=== PATIENT | male | born 1950 | race Caucasian/White ===

== ENCOUNTER 2018-02-21 13:13 | Emergency (ER) | payer MEDICARE, OTHER ==
[~2018-02-21] VITALS: Ht 182.9 cm; Wt 69.1 kg
[~2018-02-21 13:13] MED LIST: ALBU6.7H INH; CALC-1092 PO; CALC-159; FENT-93 TD; FLO0.4C PO; HALO2TAB PO; IBUP-1985 PO; LORA0.5T PO; MAGN400O6 PO; METO1TAB25 PO; MORPHINE 20MG/ML PO; ONDA4TAB6 PO; OXYC-580 PO; SENN-161 PO; naloxone 2mg/2ml inj ONE
[2018-02-21 13:33] LABS: BASOPHILS % (AUTO) 0.2 % (0-1); EOSINOPHILS % (AUTO) 0.1 % (0-6); HEMATOCRIT 37.8 % (42.0-52.0); HEMOGLOBIN 13.3 g/dl (14.0-17.9); LYMPHOCYTES # (AUTO) 0.8 X10'3 (1.1-4.8); LYMPHOCYTES % (AUTO) 16.4 % (21-51); MEAN CORPUSCULAR HGB CONC 35.2 % (33.0-36.5); MEAN CORPUSCULAR VOLUME 91.1 FL (78-98); MEAN PLATELET VOLUME 8.7 FL (7.4-10.4); MONOCYTES # (AUTO) 0.2 X10'3 (0-0.9); MONOCYTES % (AUTO) 4.1 % (2-12); NEUTROPHILS % (AUTO) 79.2 % (42-75); PLATELET COUNT 176 X10'3 (140-440); RED BLOOD COUNT 4.15 X10'6 (4.70-6.10); RED CELL DISTRIBUTION WIDTH 13.1 % (11.5-14.5); WHITE BLOOD COUNT 5.1 X10'3 (4.5-11.0)
[2018-02-21 13:49] LABS: ALANINE AMINOTRANSFERASE 20 U/L (12-78); ALBUMIN 3.8 G/DL (3.4-5.0); ALBUMIN/GLOBULIN RATIO 1.3 (1.1-1.5); ALKALINE PHOSPHATASE 68 IU/L (46-116); ANION GAP 5 (8-16); ASPARTATE AMINO TRANSFERASE 11 U/L (10-37); BILIRUBIN,TOTAL 0.5 MG/DL (0.1-1.0); BLOOD UREA NITROGEN 11 MG/DL (7-18); BUN/CREATININE RATIO 10.6 (5.4-32.0); CALCIUM 8.4 MG/DL (8.5-10.1); CHLORIDE 93 MMOL/L (99-107); CREATININE 1.04 MG/DL (0.60-1.10); GLUCOSE 190 MG/DL (70-104); POTASSIUM 3.8 MMOL/L (3.5-5.1); SODIUM 131 MMOL/L (135-145); TOTAL CARBON DIOXIDE 32.9 MMOL/L (24-32); TOTAL PROTEIN 6.7 G/DL (6.4-8.2); eGFR 72 ML/MIN
[2018-02-21 13:57] LABS: ETHANOL < 0.010 GM/DL (0.0-0.010)
[2018-02-21 13:58] LABS: ACETAMINOPHEN < 2.0 UG/ML (10-30)
[2018-02-21] MEDS ORDERED: normal saline 1000ml 1,000 ML IV ONE ×2 (14:10→17:35)
[2018-02-21 14:56] LABS: URINE AMPHETAMINE SCREEN NEGATIVE (Neg); URINE BARBITUATE SCREEN NEGATIVE (Neg); URINE BENZODIAZEPINES SCREEN NEGATIVE (Neg); URINE CANNABINOID SCREEN POSITIVE (Neg); URINE COCAINE SCREEN NEGATIVE (Neg); URINE METHADONE SCREEN NEGATIVE (Neg); URINE OPIATE SCREEN POSITIVE (Neg); URINE PHENCYCLIDINE SCREEN NEGATIVE (Neg)
[2018-02-21 14:58] LABS: CLARITY,URINE Clear (Clear); COLOR,URINE Yellow (Yellow); GLUCOSE, URINE Negative (Neg); KETONES,URINE Negative (Neg); LEUKOCYTE ESTERASE ,URINE Negative (Neg); NITRITES, URINE Negative (Neg); OCCULT BLOOD,URINE Negative (Neg); PROTEIN,URINE Negative (Neg); UROBILINOGEN,URINE 0.2 E.U/dL (0.2-1.0)
[2018-02-21 14:59] LABS: UA COLLECTION TYPE URINAL
[2018-02-21] MEDS ORDERED: naloxone 2mg/2ml inj IV STA (17:32)
[2018-02-21] MEDS ORDERED: naloxone 0.4 mg/ml inj IV ONE (17:35)
[2018-02-22] MEDS ORDERED: magnesium hydroxide 30ml (MOM) UD suspension PO PRN (06:55)
[2018-02-22] MEDS ORDERED: sennosides 8.6mg tablet PO PRN (06:55)
[2018-02-22] MEDS ORDERED: calcium carbonate 500mg chew tablet PO PRN (06:55)
[2018-02-22] MEDS ORDERED: ibuprofen 200mg tablet PO PRN (06:55)
[2018-02-22] MEDS ORDERED: morphine 10 MG/5 ML UD oral solution PO PRN (06:55)
[2018-02-22] MEDS ORDERED: ondansetron 4mg rapidly disintigrating tab PO PRN (06:55)
[2018-02-22] MEDS ORDERED: albuterol 2.5 MG/3 ML nebule NEB PRN (07:30)
[2018-02-22] MEDS: HYDROchlorothiazide 25mg tablet PO SCH (09:17)
[2018-02-22] MEDS: tamsulosin 0.4mg capsule PO SCH (09:18)
[2018-02-22] MEDS: metoprolol tartrate 25mg tablet PO SCH (09:18)
[2018-02-22] MEDS: LORazepam 0.5 MG tablet PO PRN ×3 (09:18→22:33)
[2018-02-22] MEDS: calcium carbonate/vitamin D3 tablet PO SCH (09:48)
[2018-02-22] MEDS: fentaNYL 100MCG/hour patch.TD72 TD SCH (09:51)
[2018-02-22] MEDS: haloperidol 1mg tablet PO PRN (15:06)
[2018-02-22] MEDS: diphenhydrAMINE 25mg capsule PO PRN (15:20)
[2018-02-22] MEDS ORDERED: diphenhydrAMINE 25mg capsule PO STA (22:26)
[2018-02-23] MEDS: metoprolol tartrate 25mg tablet PO SCH (08:00)
[2018-02-23] MEDS: calcium carbonate/vitamin D3 tablet PO SCH (08:00)
[2018-02-23] MEDS: HYDROchlorothiazide 25mg tablet PO SCH (08:00)
[2018-02-23] MEDS: tamsulosin 0.4mg capsule PO SCH (08:00)
[2018-02-23] MEDS ORDERED: nicotine 14mg patch - 24hr TD ONE (13:25)
[2018-02-23] MEDS: LORazepam 0.5 MG tablet PO PRN ×2 (13:32→19:25)
[2018-02-23] MEDS: oxyCODONE IR 5mg (immed. release) tablet PO PRN (13:33)
[2018-02-23] MEDS: haloperidol 1mg tablet PO PRN (13:34)
[2018-02-23] MEDS: diphenhydrAMINE 25mg capsule PO PRN (19:26)
[2018-02-24] MEDS: nicotine 14mg patch - 24hr TD SCH (08:39)
[2018-02-24] MEDS: fentaNYL 100MCG/hour patch.TD72 TD SCH (08:40)
[2018-02-24] MEDS: LORazepam 0.5 MG tablet PO PRN ×2 (08:42→19:24)
[2018-02-24] MEDS: HYDROchlorothiazide 25mg tablet PO SCH (08:42)
[2018-02-24] MEDS: tamsulosin 0.4mg capsule PO SCH (08:42)
[2018-02-24] MEDS: metoprolol tartrate 25mg tablet PO SCH (08:42)
[2018-02-24] MEDS: calcium carbonate/vitamin D3 tablet PO SCH (08:42)
[2018-02-24] MEDS: diphenhydrAMINE 25mg capsule PO PRN ×2 (14:14→19:28)
[2018-02-24] MEDS: oxyCODONE IR 5mg (immed. release) tablet PO PRN (17:04)
[2018-02-24] MEDS: haloperidol 1mg tablet PO PRN (21:57)
[2018-02-24] MEDS ORDERED: nicotine 14mg patch - 24hr TD ONE (22:00)
[2018-02-25] MEDS: LORazepam 0.5 MG tablet PO PRN ×4 (00:44→19:08)
[2018-02-25] MEDS: diphenhydrAMINE 25mg capsule PO PRN ×2 (00:44→19:10)
[2018-02-25] MEDS: oxyCODONE IR 5mg (immed. release) tablet PO PRN ×3 (00:44→23:27)
[2018-02-25] MEDS: tamsulosin 0.4mg capsule PO SCH (08:37)
[2018-02-25] MEDS: metoprolol tartrate 25mg tablet PO SCH (08:37)
[2018-02-25] MEDS: HYDROchlorothiazide 25mg tablet PO SCH (08:37)
[2018-02-25] MEDS: calcium carbonate/vitamin D3 tablet PO SCH (08:38)
[2018-02-25] MEDS: nicotine 14mg patch - 24hr TD SCH (08:38)
[2018-02-25] MEDS: haloperidol 1mg tablet PO PRN ×2 (08:42→13:33)
[2018-02-26] MEDS: nicotine 14mg patch - 24hr TD SCH (07:22)
[2018-02-26] MEDS: metoprolol tartrate 25mg tablet PO SCH (07:23)
[2018-02-26] MEDS: HYDROchlorothiazide 25mg tablet PO SCH (07:23)
[2018-02-26] MEDS: LORazepam 0.5 MG tablet PO PRN ×2 (07:24→13:05)
[2018-02-26] MEDS: tamsulosin 0.4mg capsule PO SCH (07:25)
[2018-02-26] MEDS: haloperidol 1mg tablet PO PRN ×2 (07:25→18:36)
[2018-02-26] MEDS: calcium carbonate/vitamin D3 tablet PO SCH (09:04)
[2018-02-26] MEDS: fentaNYL 100MCG/hour patch.TD72 TD SCH (09:07)
[2018-02-26] MEDS: diphenhydrAMINE 25mg capsule PO PRN ×2 (13:05→18:34)
[2018-02-26] MEDS: oxyCODONE IR 5mg (immed. release) tablet PO PRN (18:31)
[2018-02-26] MEDS ORDERED: diphenhydrAMINE 25mg capsule PO ONE (23:10)
[2018-02-27] MEDS: metoprolol tartrate 25mg tablet PO SCH (08:00)
[2018-02-27] MEDS: HYDROchlorothiazide 25mg tablet PO SCH (08:00)
[2018-02-27] MEDS: LORazepam 0.5 MG tablet PO PRN ×4 (08:45→21:38)
[2018-02-27] MEDS: tamsulosin 0.4mg capsule PO SCH (08:45)
[2018-02-27] MEDS: haloperidol 1mg tablet PO PRN ×3 (08:45→21:38)
[2018-02-27] MEDS: diphenhydrAMINE 25mg capsule PO PRN ×2 (08:46→21:38)
[2018-02-27] MEDS: nicotine 14mg patch - 24hr TD SCH (08:50)
[2018-02-27] MEDS: calcium carbonate/vitamin D3 tablet PO SCH (09:13)
[2018-02-27] MEDS: oxyCODONE IR 5mg (immed. release) tablet PO PRN (19:10)
[2018-02-28] MEDS: LORazepam 0.5 MG tablet PO PRN ×2 (03:30→11:14)
[2018-02-28] MEDS: fentaNYL 100MCG/hour patch.TD72 TD SCH (08:00)
[2018-02-28] MEDS: metoprolol tartrate 25mg tablet PO SCH (08:00)
[2018-02-28] MEDS: HYDROchlorothiazide 25mg tablet PO SCH (08:00)
[2018-02-28] MEDS: nicotine 14mg patch - 24hr TD SCH (08:13)
[2018-02-28] MEDS: tamsulosin 0.4mg capsule PO SCH (08:14)
[2018-02-28] MEDS: calcium carbonate/vitamin D3 tablet PO SCH (08:14)
[2018-02-28] MEDS ORDERED: fentaNYL 75 MCG/hour patch.TD72 TD ONE (08:40)
[2018-02-28 13:36] VITALS: BP 124/58
== END 2018-02-28 11:40 ==
LOC: ER 13:14
DX: T40.2X2A Poisoning by other opioids, intentional self-harm, initial encounter (principal); J44.9 Chronic obstructive pulmonary disease, unspecified; Z90.49 Acquired absence of other specified parts of digestive tract; Z98.890 Other specified postprocedural states; F12.90 Cannabis use, unspecified, uncomplicated; Z79.899 Other long term (current) drug therapy; Z60.2 Problems related to living alone; Y92.89 Other specified places as the place of occurrence of the external cause
CPT/HCPCS: 36415; 80053; 80305; 80320; 80329; 81003; 84443; 85025; 93005; 96374; 99285; J2310; J7030; Q0163; 96361

== ENCOUNTER 2018-02-28 10:40 | Inpatient (IN) | payer MEDICARE, OTHER ==
[~2018-02-28] VITALS: Ht 182.9 cm; Wt 67.4 kg
[~2018-02-28 10:40] MED LIST changes: -naloxone 2mg/2ml inj ONE
[2018-02-28] MEDS ORDERED: mag hydrox/Alum hydrox/simeth 30ml oral suspension PO PRN (11:30)
[2018-02-28] MEDS ORDERED: magnesium hydroxide 30ml (MOM) UD suspension PO PRN ×2 (11:30→17:25)
[2018-02-28] MEDS ORDERED: acetaminophen 325mg tablet PO PRN ×2 (11:30)
[2018-02-28 13:20] VITALS: BP 130/82
[2018-02-28 13:24] LABS: CHOL/HDL RATIO 3.2 (0.00-4.99); CHOLESTEROL 138 MG/DL (0-200); HDL CHOLESTEROL 43 MG/DL (35-60); LDL CHOLESTEROL 64 MG/DL (50-100); TRIGLYCERIDES 350 MG/DL (20-135)
[2018-02-28] MEDS ORDERED: calcium carbonate 500mg chew tablet PO PRN (17:20)
[2018-02-28] MEDS ORDERED: ondansetron 4mg rapidly disintigrating tab PO PRN (17:25)
[2018-02-28] MEDS ORDERED: sennosides 8.6mg tablet PO PRN (17:25)
[2018-02-28] MEDS: LORazepam 0.5 MG tablet PO PRN ×2 (17:42→21:49)
[2018-02-28 19:45] VITALS: BP 108/59
[2018-02-28] MEDS ORDERED: albuterol 2.5 MG/3 ML nebule NEB SCH (21:00)
[2018-02-28] MEDS ORDERED: albuterol 2.5 MG/3 ML nebule NEB PRN (21:30)
[2018-02-28] MEDS: tamsulosin 0.4mg capsule PO SCH (21:49)
[2018-02-28] MEDS: traZODone 50mg tablet PO PRN ×2 (21:49→23:04)
[2018-03-01] MEDS: LORazepam 0.5 MG tablet PO PRN (00:37)
[2018-03-01 08:00] VITALS: BP 105/55
[2018-03-01] MEDS: HYDROchlorothiazide 25mg tablet PO SCH (08:00)
[2018-03-01] MEDS: metoprolol tartrate 50mg tablet PO SCH (08:16)
[2018-03-01] MEDS: calcium carbonate/vitamin D3 tablet PO SCH (08:16)
[2018-03-01] MEDS ORDERED: traZODone 50mg tablet PO PRN (10:00)
[2018-03-01] MEDS ORDERED: nicotine 21mg patch - 24 hr TD ONE (15:50)
[2018-03-01] MEDS: hydrOXYzine 25 MG tablet PO PRN ×2 (16:08→21:20)
[2018-03-01 19:54] VITALS: BP 108/51
[2018-03-01] MEDS: ibuprofen 200mg tablet PO PRN (20:24)
[2018-03-01] MEDS: tamsulosin 0.4mg capsule PO SCH (21:20)
[2018-03-01] MEDS: mirtazapine 15mg tablet PO SCH (21:20)
[2018-03-02] MEDS: ibuprofen 200mg tablet PO PRN (05:16)
[2018-03-02] MEDS: hydrOXYzine 25 MG tablet PO PRN ×2 (05:16→19:43)
[2018-03-02 07:55] VITALS: BP 101/69
[2018-03-02] MEDS: nicotine 21mg patch - 24 hr TD SCH (08:03)
[2018-03-02] MEDS: HYDROchlorothiazide 25mg tablet PO SCH (08:04)
[2018-03-02] MEDS: metoprolol tartrate 50mg tablet PO SCH (08:04)
[2018-03-02] MEDS: calcium carbonate/vitamin D3 tablet PO SCH (08:04)
[2018-03-02] MEDS: fentaNYL 75 MCG/hour patch.TD72 TD SCH (08:11)
[2018-03-02] MEDS: fentaNYL 100MCG/hour patch.TD72 TD SCH (08:11)
[2018-03-02] MEDS ORDERED: fentaNYL 100MCG/hour patch.TD72 TD SCH ×3 (09:00→20:00)
[2018-03-02] MEDS: Protein Shake (high protein) 240ml (8oz) cup PO SCH ×2 (13:43→18:00)
[2018-03-02] MEDS ORDERED: fentaNYL 75 MCG/hour patch.TD72 TD SCH ×2 (20:00)
[2018-03-02 20:43] VITALS: BP 125/62
[2018-03-02] MEDS: tamsulosin 0.4mg capsule PO SCH (21:09)
[2018-03-02] MEDS: mirtazapine 15mg tablet PO SCH (21:09)
[2018-03-03] MEDS ORDERED: dronabinol 2.5mg capsule PO PRN ×2 (07:25→12:04)
[2018-03-03] MEDS ORDERED: morphine 10mg/0.5ml (conc. morphine) oral syringe PO PRN ×4 (07:25→12:30)
[2018-03-03] MEDS: HYDROchlorothiazide 25mg tablet PO SCH (07:56)
[2018-03-03] MEDS: calcium carbonate/vitamin D3 tablet PO SCH (07:56)
[2018-03-03] MEDS: metoprolol tartrate 50mg tablet PO SCH (07:56)
[2018-03-03] MEDS: nicotine 21mg patch - 24 hr TD SCH (07:57)
[2018-03-03 08:25] VITALS: BP 106/65
[2018-03-03] MEDS: Protein Shake (high protein) 240ml (8oz) cup PO SCH ×3 (08:37→18:00)
[2018-03-03] MEDS ORDERED: morphine 10 MG/5 ML UD oral solution PO PRN (08:45)
[2018-03-03] MEDS ORDERED: morphine 10mg/0.5ml (conc. morphine) oral syringe PO ONE (12:30)
[2018-03-03] MEDS: hydrOXYzine 25 MG tablet PO PRN ×2 (12:41→18:56)
[2018-03-03] MEDS: morphine 10mg/0.5ml (conc. morphine) oral syringe PO PRN ×2 (16:16→20:18)
[2018-03-03 20:00] VITALS: BP 120/72
[2018-03-03] MEDS: tamsulosin 0.4mg capsule PO SCH (20:15)
[2018-03-03] MEDS ORDERED: mirtazapine 15mg tablet PO SCH (21:00)
[2018-03-04 08:00] VITALS: BP 130/62
[2018-03-04] MEDS: HYDROchlorothiazide 25mg tablet PO SCH (08:00)
[2018-03-04] MEDS: hydrOXYzine 25 MG tablet PO PRN (08:04)
[2018-03-04] MEDS: metoprolol tartrate 50mg tablet PO SCH (08:04)
[2018-03-04] MEDS: calcium carbonate/vitamin D3 tablet PO SCH (08:04)
[2018-03-04] MEDS: nicotine 21mg patch - 24 hr TD SCH (08:05)
[2018-03-04] MEDS: Protein Shake (high protein) 240ml (8oz) cup PO SCH ×2 (08:38→13:06)
[2018-03-04] MEDS: fentaNYL 100MCG/hour patch.TD72 TD SCH (08:46)
[2018-03-04] MEDS: fentaNYL 75 MCG/hour patch.TD72 TD SCH (08:47)
[2018-03-04] MEDS: morphine 10mg/0.5ml (conc. morphine) oral syringe PO PRN (08:48)
[2018-03-04] MEDS ORDERED: MIRT15TA8 PO (12:57)
[2018-03-04] MEDS ORDERED: HYDR-3686 PO (12:57)
[2018-03-04] MEDS ORDERED: FENT-92 TD (12:57)
[2018-03-04] MEDS ORDERED: TRAZ-143 PO (12:57)
[2018-03-04] MEDS ORDERED: FENT-93 TD (12:57)
[2018-03-04] MEDS: ibuprofen 200mg tablet PO PRN (13:05)
== END 2018-03-04 14:30 | disposition home or self-care (01) | DRG 885 ==
LOC: ADULT MH 10:40
PROVIDERS: ADMIT Psychiatry & Neurology Psychiatry; ATTEND Psychiatry & Neurology Psychiatry
DX: F33.2 Major depressive disorder, recurrent severe without psychotic features (principal); R45.851 Suicidal ideations; C79.31 Secondary malignant neoplasm of brain; C79.51 Secondary malignant neoplasm of bone; F11.20 Opioid dependence, uncomplicated; C43.9 Malignant melanoma of skin, unspecified; F12.90 Cannabis use, unspecified, uncomplicated; F41.9 Anxiety disorder, unspecified; F43.21 Adjustment disorder with depressed mood; I10 Essential (primary) hypertension; J44.9 Chronic obstructive pulmonary disease, unspecified; Z51.5 Encounter for palliative care; Z60.2 Problems related to living alone; N40.0 Benign prostatic hyperplasia without lower urinary tract symptoms; M19.90 Unspecified osteoarthritis, unspecified site; F17.200 Nicotine dependence, unspecified, uncomplicated; Z79.899 Other long term (current) drug therapy; Z90.49 Acquired absence of other specified parts of digestive tract; Z91.5 Personal history of self-harm; Z81.1 Family history of alcohol abuse and dependence
CPT/HCPCS: 36415; 80061; 83036; 87070; Q0167; Q0177